=== PATIENT | male | born 1995 | race Caucasian/White ===

== ENCOUNTER 2022-08-01 00:11 | Emergency (ER) | payer OTHER, SELFPAY ==
[2022-08-01 00:17] VITALS: BP 143/90; PULSE 81; RESP 14; TEMP 37; O2SAT 100
--- NOTE | 2022-08-01 00:41 | ED.WOUNDLAC ---
HPI - Wound/Laceration General Chief Complaint: Wound/Laceration Stated Complaint: laceration to right palm Time Seen by Provider: 08/01/22 00:32 History of Present Illness HPI narrative: 27-year-old male reports for a laceration to his right thenar eminence that occurred 2 hours ago. Patient states he was using his drill bit when his hand slipped cutting his hand. States he was have difficulty controlling bleeding but has been controlled the past 30 minutes. Last tetanus shot was 1 year ago. Denies difficulty with range of motion, pain. Related Data Allergies Allergy/AdvReac Type Severity Reaction Status Date / Time No Known Allergies Allergy Verified 08/01/22 00:11 Review of Systems Review of Systems: CONSTITUTIONAL: Denies fever, chills EYES: Denies visual changes, redness, or discharge. ENT: Denies rhinorrhea, congestion, sore throat, or otalgia. CARDIOVASCULAR: Denies chest pain, palpitations, or edema. RESPIRATORY: Denies cough or dyspnea. GASTROINTESTINAL: Denies abdominal pain, nausea, vomiting, or diarrhea. GENITOURINARY: Denies dysuria or hematuria. SKIN: Denies rash or itching. MUSCULOSKELETAL: Denies back pain, joint pain, or myalgia. NEUROLOGIC: Denies headache, numbness, dizziness, or weakness. PSYCHIATRIC: Denies anxiety or depression. [facility] Family History Family History Mother Patient's mother is in good health Father Patient's father is in good health Sibling Patient's brother is in good health Social History Social History Smoking status: Never smoker Alcohol intake: current Exam Narrative: GENERAL: Well-appearing, well-nourished, and in no acute distress. HEAD: Normocephalic, atraumatic. ENT: Nares clear, no rhinorrhea or epistaxis. Mucous membranes moist. NECK: Supple. No adenopathy or masses. No carotid bruits or JVD CHEST: Clear to auscultation. No respiratory distress. No wheezes rales or rhonchi HEART: Regular rate and rhythm. No murmur heard. Normal peripheral pulses. EXTREMITIES: Normal range of motion. No edema. SKIN: Warm, dry, no rash. 2cm superficial laceration overlying the right thenar eminence with half a millimeter extending into the underlying adipose tissue. Bleeding controlled. Patient has full range of his hand and fingers. 2+ radial pulse. Patient neurovascularly intact. NEURO: No focal deficits. Alert and oriented x3. PSYCH: Normal mood and affect. Course Course Emergency Course: No foreign bodies on inspection. Clean laceration with normal saline. Applied a pressure bandage with gauze and Band-Aid. Vital Signs Vital signs: Vital Signs Temperature 98.6 F 08/01/22 00:17 Pulse Rate 81 08/01/22 00:17 Respiratory Rate 14 08/01/22 00:17 Blood Pressure 143/90 H 08/01/22 00:17 Pulse Oximetry 100 08/01/22 00:17 Temperature 98.6 F 08/01/22 00:17 Pulse Rate 81 08/01/22 00:17 Respiratory Rate 14 08/01/22 00:17 Blood Pressure 143/90 H 08/01/22 00:17 Pulse Oximetry 100 08/01/22 00:17 MDM - Wound/Laceration Medical Records Medical records narrative: 27-year-old male reports for a superficial laceration overlying his right thenar eminence that occurred 2 hours ago while he was using his drill bit. Patient came to the ER because he was having difficulty controlling bleeding. Bleeding controlled upon arrival. Tetanus updated last year per patient. Laceration not closed due to superficial nature. Patient to be discharged home in stable condition ED return precautions given. Patient verbalizes understanding agrees to plan. Discharge Plan Discharge Clinical Impression: Laceration Patient Disposition: Home, Self-Care Condition: Stable Instructions: Antibiotic Form, Laceration (ED) Additional Instructions: Return to the ED if you having difficulty controlling bleeding, experience increased pain, e
[2022-08-01 01:32] VITALS: BP 117/76; PULSE 69; RESP 16; O2SAT 100
== END 2022-08-01 01:33 | disposition home or self-care (01) ==
LOC: ANHED 01:28
PROVIDERS: Emergency Provider Physician Assistant
DX: S61.411A Laceration without foreign body of right hand, initial encounter (principal); W29.8XXA Contact with other powered hand tools and household machinery, initial encounter
CPT/HCPCS: 99281